=== PATIENT | male | born 1970 | race Caucasian/White ===

== ENCOUNTER 2018-08-03 14:44 | Emergency (ER) | payer OTHER, MEDICAID ==
[~2018-08-03] VITALS: Ht 177.8 cm; Wt 113.4 kg
[2018-08-03 14:51] VITALS: BP_SYST 162
--- NOTE | 2018-08-03 15:02 | NUR ---
Placed in room 1. Placed on hall monitor, blood pressure machine and pulse oximeter. To gown for exam. Side rails up. Report given to Ronny VALLADARES.
--- NOTE | 2018-08-03 15:09 | NUR ---
ER Dr. Hoffman at bedside examining patient.
[2018-08-03] MEDS ORDERED: PREDNISONE 20 MG TABLET PO ONE (15:15)
[2018-08-03] MEDS ORDERED: LISINOPRIL 10 MG TABLET (PRINIVIL) PO ONE (15:15)
--- NOTE | 2018-08-03 15:20 | NUR ---
Patient came to the ED because he has had L sided facial drooping since Thursday. Patient's upper and lower extremity bottom wheeler are 4+ equally and bilaterally. No neuro deficits noted. Patient denies N/V/D. Patient denies pain. Patient denies SOB. Patient is A&Ox4.
[2018-08-03 16:30] VITALS: BP_SYST 166
--- NOTE | 2018-08-03 16:30 | NUR ---
Patient given written and verbal discharge instructions and verbalizes understanding. ER MD discussed with patient the results and treatment provided. Patient in stable condition. ID arm band removed. Rx of Prednisone and Lisnopril given. Patient educated on pain management and to follow up with PMD. Pain Scale 0/10. Opportunity for questions provided and answered. Medication side effect fact sheet provided.
== END 2018-08-03 16:30 | disposition home or self-care (01) ==
LOC: SED 14:44
DX: G51.0 Bell's palsy (principal); I10 Essential (primary) hypertension
CPT/HCPCS: 99283; J7512